=== PATIENT | female | born 1965 | race Caucasian/White ===

== ENCOUNTER 2018-09-29 00:26 | Inpatient (IN) | payer BC ==
--- NOTE | 2018-09-28 12:32 | HISTORY AND PHYSICAL ---
DATE OF ADMISSION: September 29, 2018 IDENTIFICATION/CHIEF COMPLAINT Kathy is a 52-year old woman with a chief complaint of right knee pain. HISTORY OF PRESENT ILLNESS Patient has a longstanding history of knee arthritis, progressively painful and debilitating and refractory to conservative care. Surgery is indicated to relieve symptoms after failure of nonoperative measures. PAST MEDICAL HISTORY 1. Sleep apnea. 2. Hypertension, controlled on medication. 3. Type 2 diabetes. 4. Migraine headaches. 5. Depression. PAST SURGICAL HISTORY 1. Appendectomy. 2. Hysterectomy. 3. Laminectomy x2. 4. Bilateral carpal tunnel. 5. Bilateral shoulder surgery. CURRENT MEDICATIONS 1. Aspirin 81 mg p.o. q. day. 2. Seroquel 250 mg p.o. q.h.s. 3. Wellbutrin 150 mg q. day. 4. Promethazine 25 mg p.o. p.r.n. 5. Flovent one puff to two puffs b.i.d. 6. Mobic 15 mg p.o. q.d. FAMILY HISTORY Noncontributory. SOCIAL HISTORY Negative for tobacco and alcohol use. REVIEW OF SYSTEMS Negative. PHYSICAL EXAMINATION GENERAL: Well-developed, well-nourished female who appears her stated age. HEENT: Normocephalic, atraumatic. NECK: Supple. LUNGS: Clear. HEART: Regular. ABDOMEN: Soft. ORTHOPEDIC EXAM The right knee has crepitus. She has an effusion present, stiffened of range. Gross stability is good. Radiographs demonstrate end-stage knee arthritis. ASSESSMENT Right knee degenerative joint disease, refractory to conservative care. PLAN Per patient request, we will proceed with total knee arthroplasty. The nature of the procedure, risks and benefits and anticipated rehab course were reviewed as well as nonoperative alternative. The risks of the procedure include, but are not limited to, , major medical or anesthetic complications, infection, neurovascular, need for blood transfusion, stiffening, scarring, fracture, tendon rupture, instability, implant loosening, migration or failure, persistent or recurrent pain, need for additional surgery and other unforeseen. She understands and wishes to proceed. A signed permit was placed in the chart. No guarantees are given or implied. PAYAM
[2018-09-28 13:56] LABS: INR 0.94
[~2018-09-29] VITALS: Ht 170.2 cm; Wt 97.5 kg
[2018-09-29] VITALS (11 sets, daily range): BP systolic 87–147; BP diastolic 49–77
[~2018-09-29 00:26] MED LIST: ASPI-1471 PO; BISO5TAB23 PO; BUPR-118 PO; ESC10 PO; ESOM40CA42 PO; ESTROTEST PO; FLU150 PO; LAMO200T45 PO; LISI-362 PO; LOVA40TA89 PO; MELO-205 PO; METF-450 PO; NEX40PT PO; PRE200PT PO; PRO100 PO; QUET150T3 PO; RANI150C17 PO; TIZA4CAP3 PO; TRAM100T8 PO; ZOPENEX INH
[2018-09-29] MEDS: NORMOSOL R SOLN(*) 1000 ML BAG 1,000 ML IV PRN ×2 (09:43→14:45)
[2018-09-29] MEDS ORDERED: LIDOCAINE/SOD BICARB 8.4% SYR ID ONE (10:00)
[2018-09-29] MEDS ORDERED: CELECOXIB 200 MG CAP PO ONE (10:00)
[2018-09-29] MEDS ORDERED: MIDAZOLAM 2 MG/2 ML VIAL IVP PRN (10:00)
[2018-09-29] MEDS ORDERED: PREGABALIN 150 MG CAPSULE PO ONE (10:00)
[2018-09-29] MEDS ORDERED: CLINDAMYCIN(*) 900 MG/NS 50 ML 50 ML IVPB ONE (10:00)
[2018-09-29] MEDS ORDERED: ROPIVACAINE/EPI/CLONIDINE/KET 50 ML SYRINGE INJ ONE (10:00)
[2018-09-29] MEDS ORDERED: TRANEXAMIC AC 1000 MG/10ML SDV 1,000 MG in DEXTROSE 5% 50 ML BAG 50 ML IV ONE ×4 (10:00)
[2018-09-29] MEDS ORDERED: FAMOTIDINE 20 MG TAB PO ONE (10:00)
[2018-09-29] MEDS ORDERED: ACETAMINOPHEN 500 MG TAB PO ONE (10:00)
[2018-09-29] MEDS ORDERED: SCOPOLAMINE 1.5 MG PATCH TD ONE (10:08)
[2018-09-29] MEDS ORDERED: DEXAMETHASONE SOD PHOS 10MG/ML ONE (10:49)
[2018-09-29] MEDS ORDERED: ONDANSETRON 4 MG/2 ML VIAL ONE (10:49)
[2018-09-29] MEDS ORDERED: PROPOFOL EMUL(*) 10MG/ML 20 ML 80 ML ONE (10:49)
[2018-09-29] MEDS ORDERED: MIDAZOLAM 2 MG/2 ML VIAL ONE (11:52)
[2018-09-29] MEDS ORDERED: ROPIVACAINE 0.5% 20 ML VIAL ONE (11:52)
[2018-09-29] MEDS ORDERED: VANCOMYCIN 1 GM VIAL ONE (12:07)
[2018-09-29] MEDS ORDERED: diphenhydrAMINE 25 MG CAP PO PRN (14:30)
[2018-09-29] MEDS ORDERED: ACETAMINOPHEN 325 MG TAB PO PRN (14:30)
[2018-09-29] MEDS ORDERED: ZOLPIDEM TARTRATE 5 MG TAB PO PRN (14:30)
[2018-09-29] MEDS ORDERED: NORMOSOL R SOLN(*) 1000 ML BAG 1,000 ML IV PRN (14:30)
[2018-09-29] MEDS ORDERED: BENZOCAINE/MENTHOL 1 EACH LOZG PO PRN (14:30)
[2018-09-29] MEDS ORDERED: BISACODYL 10 MG SUPP PR PRN (14:30)
[2018-09-29] MEDS ORDERED: diphenhydrAMINE 50 MG/ML VIAL IVP PRN (14:30)
[2018-09-29] MEDS ORDERED: MAGNESIUM HYDROXIDE* 30ML UDCP PO PRN (14:30)
[2018-09-29] MEDS ORDERED: FLUSH 10 ML SYR IVP PRN (14:30)
--- NOTE | 2018-09-29 15:03 | RADIOLOGY IMAGING REPORT ---
FACILITY: [facility] - [place] PATIENT NAME: Kathy Oliveira : 1965 MR: [id number] V: [id number] EXAM DATE: ORDERING PHYSICIAN: AISHA TAYLOR TECHNOLOGIST: Location: [facility] Patient: Kathy Oliveira : 1965 Visit/Account:[id number] Date of Sevice: 09/29/2018 KNEE LIMITED RIGHT Indication: POST R TKA Comparison: None. Findings: There are postoperative changes from right total knee arthroplasty. The femoral, patellar, and tibial components are in good alignment. Impression: Postoperative changes right total knee arthroplasty. Report Dictated By: Asaf Pearl at 09/29/2018 2:56 PM Report E-Signed By: Asaf Pearl at 09/29/2018 2:56 PM WSN:[id number]
[2018-09-29] MEDS: APAP/HYDROCODONE 325/7.5 TAB PO PRN ×2 (15:39→20:54)
--- NOTE | 2018-09-29 15:58 | NUR ---
Physical Therapy Impression PT eval complete. Pt's main complaint is L) shoulder pain, she reports that she has pain and poor function of B) shoulders. Pt completed bed mobility with Alexa. CGA to stand at EOB, pt with effects of spinal still intact and therefore side step not completed. CPM fit and running 0-30 degrees at end of session, pt with good tolerance to supine LE therex. Pt anticipates d/c with OP PT services. Physical Therapy Goals 1: bed mobility with Alexa 2: transfers with SBA and least restrictive Ad 3: ambulation x150' wtih SBA and least restrictive AD 4: Asc/desc 4 stairs with railing and CGA. 5: Pt to be I) with CPM Patient's Goals
[2018-09-29] MEDS ORDERED: LEVALBUTEROL 15 GM INH INH PRN (16:10)
--- NOTE | 2018-09-29 16:10 | Hospitalist Consultation ---
History of Present Illness Requesting Physician Dr. Snell Reason for Consult Medical Management Chief Complaint s/p right knee replacement History of Present Illness She was admitted s/p right knee replacement. It is reported the surgery went well and without complication. History Problems: (1) Bigeminal rhythm Status: Chronic (2) Asthma Status: Chronic (3) GERD (gastroesophageal reflux disease) Status: Chronic (4) Hypertension Status: Chronic (5) Hyperlipidemia Status: Chronic (6) Type 2 diabetes mellitus Status: Chronic Home Meds Reported Medications [Zopenex] No Conflict Check, 2 PUFF INH PRN 09/28/18 Ranitidine Hcl (RANITIDINE HCL) 150 Mg Capsule, 150 MG PO QHS, CAPSULE 09/28/18 Metformin Hcl (METFORMIN HCL) 500 Mg Tablet, 1 TAB PO QHS, TAB 09/28/18 Lisinopril (LISINOPRIL) 10 Mg Tablet, 10 MG PO QHS, TAB 09/28/18 [Estrotest] No Conflict Check, 0.25 MG PO DAILY 09/28/18 Tramadol Hcl (TRAMADOL HCL) 100 Mg Tab.er.24h, 100 MG PO QID PRN for PAIN, TAB 09/23/18 Aspirin (ASPIR 81) 81 Mg Tablet.dr, 81 MG PO QDAY, TAB 09/23/18 Bisoprolol Fumarate (BISOPROLOL FUMARATE) 5 Mg Tablet, 5 MG PO QDAY, #10 TAB 09/23/18 Meloxicam (MELOXICAM) 7.5 Mg Tablet, 7.5 MG PO QDAY 09/23/18 Lovastatin (LOVASTATIN) 40 Mg Tablet, 40 MG PO QDAY 09/23/18 Tizanidine Hcl (TIZANIDINE HCL) 4 Mg Capsule, 8.5 MG PO QHS, CAPSULE 09/23/18 Esomeprazole Magnesium (NEXIUM) 40 Mg Capsule.dr, 1 CAP PO QHS, CAP 09/23/18 Pregabalin (LYRICA) 200 Mg Cap, 200 MG PO BID, CAP 09/23/18 Progesterone (Prometrium) 100 Mg Cap, 100 MG PO QDAY 12/21/11 Lamotrigine (Lamotrigine) 200 Mg Tablet, 200 MG PO DAILY 12/21/11 Bupropion Hcl (Budeprion Xl) 150 Mg Tab.sr.24h, 150 MG PO DAILY 12/21/11 Escitalopram Oxalate (Lexapro) 10 Mg Tab, 20 MG PO QHS 12/21/11 Quetiapine Fumarate (Seroquel Xr) 150 Mg Tab.sr.24h, 400 MG PO HS 12/21/11 Discontinued Reported Medications Fluconazole (Diflucan) 150 Mg Tab, 150 MG PO QDAY 12/21/11 Allergies: Coded Allergies: Penicillins (Verified Allergy, Severe, THROAT SWELLING, 09/23/18) cephalexin (Verified Allergy, Severe, anaphylaxis, 09/22/18) sumatriptan (Verified Allergy, Intermediate, VOMITING,DIARRHEA AND SEVERE HEADACHES, 09/24/18) Patient History: FH: COPD (chronic obstructive pulmonary disease) MOTHER FH: Crohn's disease MOTHER FH: prostate cancer FATHER Hx Smoking: No Smoking Status: Former Smoker When Quit Tobacco?: 4 years ago Caffeine Intake: Soda Caffeine/Cups Per Day: 2 CANS DAILY Hx Alcohol Use: No Hx Substance Use Disorder: No History of IV Drug Use: No Review of Systems All Systems Reviewed/Normal: Yes, Except as Noted Musculoskeletal: Pain (she has c/o of bilateral chronic shoulder pain) Exam Vital Signs Vital Signs Date Time Temp Pulse Resp B/P (MAP) Pulse Ox O2 Delivery O2 Flow Rate FiO2 09/29/18 15:19 98.1 62 12 114/57 (76) 92 Nasal Cannula 4.0 General Appearance: Alert, Awake, No Acute Distress, Afebrile Neuro: No Gross deficits Cardiovascular: Regular Rate and Rhythm Respiratory: No Respiratory Distress, Clear to Auscultation GI: Abd Soft and Non-Tender Psych: Alert & Oriented X3, Appropriate Mood & Affect Assessment and Plan Problems: (1) Status post right knee replacement Status: Acute Assessment & Plan: Followed by Dr. Snell. She will be placed on Aspirin for D VT prophylaxis. (2) Bigeminal rhythm Status: Chronic Assessment & Plan: She is on chronic treatment with Bisoprolol. Continue. (3) Hypertension Status: Chronic Assessment & Plan: She is on chronic treatment with Lisinopril. This has been restarted with hold parameters. (4) Type 2 diabetes mellitus Status: Chronic Assessment & Plan: She is on chronic treatment with Metformin. She will be started on SS insulin #2 and AC/HS blood sugars. (5) Asthma Status: Chronic Assessment & Plan: She is on chronic treatment with Xopenex inhaler. (6) GERD (gastroesophageal reflux disease) Status: Chronic Assessment & Plan: She is on chronic treatment with Nexium. She will be placed on Protonix during admission. (7) Hyperlipidemia Status: Chronic Assessment & Plan: She is on chronic treatment with Lovastatin. Venous Thromboembolism Antithrombotics Is Pt On Any Antithrombotics?: No Problem Qualifiers (1) Hypertension: Hypertension type: essential hypertension Qualified Codes: I10 - Essential (primary) hypertension ADRIEL CASEP Sep 29, 2018 16:10
[2018-09-29] MEDS: INSULIN HUM LISPRO 100 UN/ML 3 ML VIAL SUBQ PRN ×2 (17:24→20:58)
[2018-09-29] MEDS: DIAZEPAM 5 MG TAB PO PRN (17:24)
[2018-09-29] MEDS: CELECOXIB 200 MG CAP PO SCH (17:24)
[2018-09-29] MEDS: CLINDAMYCIN(*) 900 MG/NS 50 ML 50 ML IVPB SCH (20:31)
[2018-09-29] MEDS: QUEtiapine FUM 100 MG TAB PO SCH (20:54)
[2018-09-29] MEDS: RANITIDINE HCL 150 MG TAB PO SCH (20:55)
[2018-09-29] MEDS: ESCITALOPRAM OXALATE 10 MG TAB PO SCH (20:55)
[2018-09-29] MEDS: PREGABALIN PO SCH (20:55)
[2018-09-29] MEDS: PANTOPRAZOLE SOD 40 MG TABEC PO SCH (20:55)
[2018-09-29] MEDS ORDERED: PREGABALIN 200 MG PO SCH (21:00)
[2018-09-29] MEDS: LISINOPRIL 10 MG TAB PO SCH (21:00)
[2018-09-29] MEDS ORDERED: NS(*) 0.9% 250 ML BAG 250 ML ONE (21:03)
--- NOTE | 2018-09-29 22:08 | OPERATIVE REPORT 1 ---
EVENT DATE: September 29, 2018 SURGEON: Jose Miguel Snell MD ANESTHESIOLOGIST: Mal Somers MD ANESTHESIA: General plus spinal. PRODUCTION ENGINE REPAIRER: JUANITA Kiran PREOPERATIVE DIAGNOSIS Right knee degenerative joint disease. POSTOPERATIVE DIAGNOSIS Right knee degenerative joint disease. PROCEDURE PERFORMED Right total knee arthroplasty. ESTIMATED BLOOD LOSS Minimal. DRAINS None. SPECIMENS None. COMPLICATIONS None apparent. TOURNIQUET TIME 45 minutes IMPLANTS USED [employer] Triathlon knee system with a 3 right PS femur, 3 standard tibial baseplate, 36 mm universal, symmetric, all-polyethylene patellar button, and a 16 mm PS tibial tray liner. INDICATIONS Kathy has end-stage patellofemoral arthritis and subluxation associated with some disease in the tibiofemoral compartment. Surgery is indicated to relieve pain and improve function after failure of nonoperative measures. DESCRIPTION OF PROCEDURE Patient is taken to the operating room. She is placed supine on the operating table. General anesthesia is induced. Standard antibiotics are administered IV. Right lower extremity is prepped and draped in the usual sterile fashion for orthopedic surgery. Limb is exsanguinated with an Esmarch bandage. Tourniquet is inflated to 250 mmHg. A midline longitudinal incision is made and carried down through the skin and subcutaneous tissue to the extensor mechanism. Full-thickness flap is developed far enough medially to allow medial parapatellar arthrotomy to be performed. Patella is everted. Knee is brought into a flexed position. Fat pad, anterior horns of the menisci, and the cruciate ligaments are debrided. Subperiosteal capsule release is performed 1 cm circumferentially around the upper plateau. A step drill is used to enter the distal femur. A 10-inch long alignment guide is used to engage the isthmus. Cut is set for 6 degrees of valgus relative to the anatomic axis. A 10 mm resection block is applied and pinned. Cut is made with an oscillating saw. AP sizing guide is applied to the distal femur and positioned for 3 degrees of external rotation relative to the posterior condyles. The four-in-one cutting block is applied after sizing for size 3. Anterior, posterior, posterior chamfer, and anterior chamfer cuts are made respectively. PS block is applied and centered. Medial and lateral bone is removed through the box. Trial femur has nice fit. Attention is turned to tibial preparation. The extramedullary guide is applied and positioned for varus, valgus, posterior slope, and rotation. This is set to take 9 mm from the relatively intact lateral tibial plateau. It is dropped down another millimeter or two to assure an adequate cut. Block is pinned. Extramedullary alignment check is made. Cuts are made with an oscillating saw. The gaps are balanced and symmetric with no additional releases required. A size 3 tibial baseplate covers the bony surface on the tibia ideally without overhang. This is inserted along with the trial liner and trial femur. Knee is brought to full extension. Patella is taken from a starting thickness of 21 to a residual of 14 mm with a patellar clamp and oscillating saw. The 36 provides optimal bony coverage without soft tissue overhang. Lug holes are drilled. Patella tracks nicely with the no-touch technique. Final tibial preparation consists of assuring appropriate rotational and translational positioning of the component. Boss is reamed. Fin is punched. Surface is lavaged. A mix of methacrylate is made, and components are cemented in a single stage. Once the cement is fully polymerized, tourniquet is deflated. Meticulous hemostasis is assured. Loose debris is cleared from the wound. A 16 PS tibial tray liner fills up the gap ideally, allowing the knee to drop to full extension without hyperextension, providing optimal soft tissue balance and stability. Tray is lavaged and dried, and the actual liner is locked into the baseplate. Once reduced, the arthrotomy is closed with in flexion with #2 Ethibond, subcutaneous tissue with 3-0 Vicryl, and skin with surgical che. Xeroform is applied for a dry, sterile dressing and compression wrap. Patient is awakened from anesthesia and taken to the recovery room in stable condition having tolerated the procedure well. PLAN Plan is for standard TKA rehab protocol. [facility]
[2018-09-30] MEDS: APAP/HYDROCODONE 325/7.5 TAB PO PRN ×4 (01:33→17:01)
[2018-09-30] MEDS: DIAZEPAM 5 MG TAB PO PRN ×2 (01:33→08:51)
[2018-09-30] MEDS: CLINDAMYCIN(*) 900 MG/NS 50 ML 50 ML IVPB SCH ×2 (04:22→13:05)
[2018-09-30 07:50] VITALS: BP 116/58
[2018-09-30 08:46] VITALS: Ht 170.2 cm; Wt 97.5 kg
[2018-09-30] MEDS: CELECOXIB 200 MG CAP PO SCH ×2 (08:49→17:23)
[2018-09-30] MEDS: ASPIRIN 325 MG TAB PO SCH (08:49)
[2018-09-30] MEDS: buPROPion XL 150 MG TABCR PO SCH (08:50)
[2018-09-30] MEDS: PREGABALIN PO SCH ×2 (08:51→20:38)
[2018-09-30] MEDS: LOVASTATIN 20 MG TAB PO SCH (08:51)
[2018-09-30] MEDS: lamoTRIgine 100 MG TAB PO SCH (08:53)
[2018-09-30] MEDS ORDERED: BISOPROLOL FUMARATE 5 MG TAB PO SCH (09:00)
[2018-09-30] MEDS: oxyCODONE HCL 5 MG CAP PO PRN ×3 (10:44→23:00)
[2018-09-30] MEDS: METOPROLOL SUCC XL 50 MG TABCR 50 MG TAB.ER.24H PO SCH (10:45)
--- NOTE | 2018-09-30 11:04 | Hospitalist Progress Note ---
Subjective Progress Notes Subjective She was admitted after right knee replacement. She had no complaints this morning. She had no acute events overnight. Patient Complains of: Cardiovascular: No: Chest Pain Respiratory: No: Shortness of Breath Physical Exam Vital Signs Date Time Temp Pulse Resp B/P (MAP) Pulse Ox O2 Delivery O2 Flow Rate FiO2 09/30/18 09:08 83 09/30/18 07:50 98.4 64 18 116/58 (77) Nasal Cannula 2.0 Intake and Output 09/30/18 07:00 Intake Total 2500 ml Balance 2500 ml Intake Oral 400 ml IV Total 2100 ml # Voids 3 General Appearance: Alert, Awake, No Acute Distress, Afebrile Neuro: No Gross deficits Cardiovascular: Regular Rate and Rhythm Respiratory: No Respiratory Distress, Clear to Auscultation Psych: Alert & Oriented X3, Appropriate Mood & Affect Assessment and Plan Problems: (1) Status post right knee replacement Status: Acute Assessment & Plan: Followed by Dr. Snell. She will be placed on Aspirin for DVT prophylaxis. (2) Bigeminal rhythm Status: Chronic Assessment & Plan: She is on chronic treatment with Bisoprolol. The hospital does not carry Bisoprolol. She will be placed on equivocal dose of Metoprolol during admission. (3) Hypertension Status: Chronic Assessment & Plan: She is on chronic treatment with Lisinopril. This has been restarted with hold parameters. (4) Type 2 diabetes mellitus Status: Chronic Assessment & Plan: She is on chronic treatment with Metformin. She will be started on SS insulin #2 and AC/HS blood sugars. (5) Asthma Status: Chronic Assessment & Plan: She is on chronic treatment with Xopenex inhaler. (6) GERD (gastroesophageal reflux disease) Status: Chronic Assessment & Plan: She is on chronic treatment with Nexium. She will be placed on Protonix during admission. (7) Hyperlipidemia Status: Chronic Assessment & Plan: She is on chronic treatment with Lovastatin. Exam Sepsis Risk: No Definite Risk Problem Qualifiers (1) Hypertension: Hypertension type: essential hypertension Qualified Codes: I10 - Essential (primary) hypertension ADRIEL CASE REHABILITATION ENGINEER Sep 30, 2018 11:04
[2018-09-30 11:25] VITALS: BP 122/62
[2018-09-30] MEDS: INSULIN HUM LISPRO 100 UN/ML 3 ML VIAL SUBQ PRN ×3 (11:52→20:40)
--- NOTE | 2018-09-30 12:03 | NUR ---
Physical Therapy Impression Pt is doing well with transfers and tolerated gait x 100' with FWW. Pt on room air with activity, though SpO2 was 84% upon return to bed. Replaced supplementary O2 at 1.0 L with quick increase to low/mid 90% saturation. Notified nursing of this. Pt is hoping to D/C home tomorrow with OP PT. Will need to complete a platform step to simulate entry into her home prior to D/C. Physical Therapy Goals 1: bed mobility with Alexa 2: transfers with SBA and least restrictive Ad 3: ambulation x150' wtih SBA and least restrictive AD 4: Asc/desc 4 stairs with railing and CGA. 5: Pt to be I) with CPM Patient's Goals
[2018-09-30] MEDS: METAXALONE 800 MG TAB PO PRN ×2 (13:05→19:22)
[2018-09-30 14:44] VITALS: BP 112/43
--- NOTE | 2018-09-30 16:04 | Medical Nutrition Therapy ---
Nutrition Anthropometrics Height (Inches): 67.00 Height (Calculated Centimeters: 170.810145 Weight (Pounds): 215 Weight (Calculated Kilograms): 97.522 Jules Nutrition Score: Adequate Jules Nutrition Risk Score: 18 Dietary Referral Nutrition Risk Factors: Special Diet Nutrition Risk Comment: Vegetarian Physical Findings Physical Appearance: Obese BMI 30-39 Skin Appearance Skin Appearance: Edema Edema Location Modifier: Right Edema Location: Foot Type of Edema: Degree of Edema: Gastrointestinal Symptoms GI Symtoms: Tube Present: Bowel Sounds: Recent Bowel Pattern: Stool Characteristics: Nutritional Diagnosis Nutritional Risk Acuity 2: Blood Glucose > 300mg/dl Nutritional Risk Acuity 3: GERD Nutritional Risk Acuity 4: Modified Diet Past Medical History: DMT2, Asthma, GERD, Hypertesion, Hyperlipidemia. Nutritional Acuity: 2-Moderate Nutrition Diagnosis: Inconsistent Carb. Intake Nutrition Etiology: Physiological Causes Nutrition Problem/Etiology/Sym: Inconsistent cardb intake related to physiological causes as evidenced by recent right knee replacement and blood sugar over 300mg/dL. Energy Requirement: 2123 (AF 1.2, TEF 1.1) Adjusted Energy Requirement Re: 1623 (-500kcal) Protein Requirement: 78 (0.8g AA/kg BW) Fluid Requirement: 2123 (1 kcal = 1 mL) Diet Type: Diabetic Nutrition Intervention: Cont diet as ordered, Encourage intake, Check glucose Diet Comment To RSA: Prefers Vegetarian Diet. Diabetic diet. Nutrition Monitoring & Eval Nutrition Goals: Eat 50-100% Meal, Drink > 2 liters/day RD Patient Assessment Time: [address] Assessment Type: RD Assessment Patient Nutrition Acuity: 2-Moderate Follow Up Date: Oct 04, 2018 Nutritional Comment: Pt admitted to hospital today for right knee replacement. Pt has a hx of DMT2, GERD, Asthma, Hypertension, Hyperlipidemia. Pt on a diabetic diet and prefers vegetarian. Pt is on metformin. Blood Glucose range from 108-315. Pt admitted in 2011 weighed 107kg, current (2019) weight 97kg, wt loss of 10kg in 7 years. -WENDY RD read and approved. -ROB LEE Sep 30, 2018 16:04
[2018-09-30 20:17] VITALS: BP 128/62
[2018-09-30] MEDS: ESCITALOPRAM OXALATE 10 MG TAB PO SCH (20:38)
[2018-09-30] MEDS: metFORMIN HCL 500 MG TAB PO SCH (20:38)
[2018-09-30] MEDS: PANTOPRAZOLE SOD 40 MG TABEC PO SCH (20:39)
[2018-09-30] MEDS: LISINOPRIL 10 MG TAB PO SCH (20:39)
[2018-09-30] MEDS: RANITIDINE HCL 150 MG TAB PO SCH (20:39)
[2018-09-30] MEDS: QUEtiapine FUM 100 MG TAB PO SCH (20:39)
[2018-09-30] MEDS: PROMETHAZINE 25 MG/ML 1 ML AMP IVP PRN (23:15)
[2018-09-30 23:20] VITALS: BP 136/72
[2018-10-01] MEDS: DIAZEPAM 5 MG TAB PO PRN (00:28)
[2018-10-01] MEDS: APAP/HYDROCODONE 325/7.5 TAB PO PRN ×4 (03:45→21:16)
[2018-10-01 03:51] VITALS: BP 128/60
[2018-10-01] MEDS: CELECOXIB 200 MG CAP PO SCH ×2 (08:00→16:11)
[2018-10-01 08:28] VITALS: BP 113/74
[2018-10-01] MEDS ORDERED: DIA5 PO (08:43)
[2018-10-01] MEDS ORDERED: HYDR-654 PO (08:46)
[2018-10-01] MEDS: PREGABALIN PO SCH ×2 (09:00→21:16)
[2018-10-01] MEDS: LOVASTATIN 20 MG TAB PO SCH (09:00)
[2018-10-01] MEDS: METOPROLOL SUCC XL 50 MG TABCR 50 MG TAB.ER.24H PO SCH (09:00)
--- NOTE | 2018-10-01 09:00 | NUR ---
Physical Therapy Impression Pt progressing and will address stairs in rehab dept tomorrow am prior to anticipated d/c home with out pt PT arranged. Physical Therapy Goals 1: bed mobility with Alexa 2: transfers with SBA and least restrictive Ad 3: ambulation x150' wtih SBA and least restrictive AD 4: Asc/desc 4 stairs with railing and CGA. 5: Pt to be I) with CPM Patient's Goals Addendum: 10/03/18 at 0135 by MESHA GRAY PT Late Entry for PT visit completed on 09/30/18 at 16:15.
--- NOTE | 2018-10-01 10:00 | NUR ---
Did not cover using sliding scale d/t pt c/o nausea, refusing breakfast. Addendum: 10/01/18 at 2053 by KIKE SHARMA RN Amended: Links added.
[2018-10-01] MEDS ORDERED: ASPI-757 PO (10:37)
--- NOTE | 2018-10-01 10:58 | Hospitalist Progress Note ---
Subjective Progress Notes Subjective She was admitted s/p knee replacement. She appears to have increased sedation this morning. She is slurring her words, unable to stay awake. Patient Complains of: Cardiovascular: No: Chest Pain Respiratory: No: Shortness of Breath Physical Exam Vital Signs Date Time Temp Pulse Resp B/P (MAP) Pulse Ox O2 Delivery O2 Flow Rate FiO2 10/01/18 09:36 Nasal Cannula 2.5 10/01/18 09:33 63 18 95 10/01/18 08:28 98.8 113/74 (87) Intake and Output 10/01/18 07:00 Intake Total 1339 ml Balance 1339 ml Intake Oral 1284 ml IV Total 55 ml # Voids 5 General Appearance: Afebrile Neuro: Other (unable to stay awake during conversation, slurring words) Cardiovascular: Regular Rate and Rhythm Respiratory: No Respiratory Distress, Clear to Auscultation Extremities: Warm, Perfused Assessment and Plan Problems: (1) Status post right knee replacement Status: Acute Assessment & Plan: Followed by Dr. Snell. She will be placed on Aspirin for DVT prophylaxis. (2) Medication adverse effect Status: Acute Assessment & Plan: She appeared to have increased sedation this morning. Will recommend stopping the Skelaxin, as she also is receiving Valium for muscle relaxant. Will continue to monitor. She has now been able to wake up and ambulate to the bathroom. (3) Bigeminal rhythm Status: Chronic Assessment & Plan: She is on chronic treatment with Bisoprolol. The hospital does not carry Bisoprolol. She will be placed on equivocal dose of Metoprolol during admission. (4) Hypertension Status: Chronic Assessment & Plan: She is on chronic treatment with Lisinopril. This has been restarted with hold parameters. (5) Type 2 diabetes mellitus Status: Chronic Assessment & Plan: She is on chronic treatment with Metformin. She will be started on SS insulin #2 and AC/HS blood sugars. (6) Asthma Status: Chronic Assessment & Plan: She is on chronic treatment with Xopenex inhaler. (7) GERD (gastroesophageal reflux disease) Status: Chronic Assessment & Plan: She is on chronic treatment with Nexium. She will be placed on Protonix during admission. (8) Hyperlipidemia Status: Chronic Assessment & Plan: She is on chronic treatment with Lovastatin. Exam Sepsis Risk: No Definite Risk Problem Qualifiers (1) Hypertension: Hypertension type: essential hypertension Qualified Codes: I10 - Essential (primary) hypertension ADRIEL CASE DIRECTOR EXTERNAL COMMUNICATIONS Oct 01, 2018 10:57
--- NOTE | 2018-10-01 11:40 | NUR ---
Physical Therapy Impression Pt very lethargic this morning, with difficulty communicating. RN aware and reports that pt is having this reaction to combination of pain medication. Pt nauseous when PT attempted session later in the AM. Alexa to rise to stand, ambulation x10' with RW. Pt reported nausea and requested to sit. PT assisted pt to chair and then back into bed with min-modA. All vital signs WNL, RN notified. Physical Therapy Goals 1: bed mobility with Alexa 2: transfers with SBA and least restrictive Ad 3: ambulation x150' wtih SBA and least restrictive AD 4: Asc/desc 4 stairs with railing and CGA. 5: Pt to be I) with CPM Patient's Goals
[2018-10-01] MEDS: PROMETHAZINE 25 MG/ML 1 ML AMP IVP PRN (12:05)
[2018-10-01 12:15] VITALS: BP 115/54
--- NOTE | 2018-10-01 13:11 | NUR ---
Patient sedated this AM. Nauseated upon waking. Refused scheduled meds at this point, pt stated it is acceptable to not take home meds at this time. Checked morning WBG. Provided Sprite Zero, saltine crackers in AM, patient requested phenergan after working with PT, refused lunch. Patient resting quietly, will continue to monitor.
--- NOTE | 2018-10-01 15:04 | NUR ---
Physical Therapy Impression Pt up in bathroom, requires encouragement to participate in therapy session secondary to continued nausea and pain. Pt with overall improved tolerance. SBA for transfers and ambulation x20' with use of RW. PT instructed pt in stair negotiation on 2" stairs as the pt reports short stairs at home. Pt asc/desc 6 stairs with close CGA and fair tolerance. Plan for d/c home in AM if functionally appropriate. Pt with continued nausea throughout session. Physical Therapy Goals 1: bed mobility with Alexa 2: transfers with SBA and least restrictive Ad 3: ambulation x150' wtih SBA and least restrictive AD 4: Asc/desc 4 stairs with railing and CGA. 5: Pt to be I) with CPM Patient's Goals
[2018-10-01] MEDS: ASPIRIN 325 MG TAB PO SCH (16:11)
[2018-10-01] MEDS: lamoTRIgine 100 MG TAB PO SCH (16:12)
[2018-10-01] MEDS: buPROPion XL 150 MG TABCR PO SCH (16:12)
[2018-10-01 16:17] VITALS: BP 134/67
[2018-10-01 20:30] VITALS: BP 137/71
--- NOTE | 2018-10-01 20:52 | NUR ---
Did not cover with sliding scale d/t patient has refused food today. Explained to patient that RN will check at bedtime. Addendum: 10/01/18 at 2052 by KIKE SHARMA RN Amended: Links added.
[2018-10-01] MEDS: PANTOPRAZOLE SOD 40 MG TABEC PO SCH (21:16)
[2018-10-01] MEDS: LISINOPRIL 10 MG TAB PO SCH (21:16)
[2018-10-01] MEDS: metFORMIN HCL 500 MG TAB PO SCH (21:16)
[2018-10-01] MEDS: ESCITALOPRAM OXALATE 10 MG TAB PO SCH (21:17)
[2018-10-01] MEDS: RANITIDINE HCL 150 MG TAB PO SCH (21:17)
[2018-10-01] MEDS: INSULIN HUM LISPRO 100 UN/ML 3 ML VIAL SUBQ PRN (21:18)
[2018-10-01] MEDS: QUEtiapine FUM 100 MG TAB PO SCH (21:43)
[2018-10-02 02:44] VITALS: BP 118/57
[2018-10-02 07:20] VITALS: BP 126/69
[2018-10-02] MEDS: CELECOXIB 200 MG CAP PO SCH (07:46)
[2018-10-02] MEDS: APAP/HYDROCODONE 325/7.5 TAB PO PRN ×2 (07:46→12:17)
[2018-10-02] MEDS: INSULIN HUM LISPRO 100 UN/ML 3 ML VIAL SUBQ PRN (08:08)
--- NOTE | 2018-10-02 08:38 | NUR ---
Physical Therapy Impression Pt met PT goals yesterday afternoon with completion of stairs after she became more alert. Pt now notes that she feels confident with discharge home today. Reviewed CPM trng with instructions and return demo on how to advance flexion as tolerated. Physical Therapy Goals 1: bed mobility with Alexa 2: transfers with SBA and least restrictive Ad 3: ambulation x150' wtih SBA and least restrictive AD 4: Asc/desc 4 stairs with railing and CGA. 5: Pt to be I) with CPM Patient's Goals
[2018-10-02] MEDS: LOVASTATIN 20 MG TAB PO SCH (08:54)
[2018-10-02] MEDS: ASPIRIN 325 MG TAB PO SCH (08:54)
[2018-10-02] MEDS: PREGABALIN PO SCH (08:54)
[2018-10-02] MEDS: METOPROLOL SUCC XL 50 MG TABCR 50 MG TAB.ER.24H PO SCH (08:54)
[2018-10-02] MEDS: buPROPion XL 150 MG TABCR PO SCH (08:55)
[2018-10-02] MEDS: lamoTRIgine 100 MG TAB PO SCH (09:02)
[2018-10-02] MEDS: oxyCODONE HCL 5 MG CAP PO PRN (11:16)
--- NOTE | 2018-10-02 11:28 | Hospitalist Progress Note ---
Subjective Progress Notes Subjective She was admitted after knee replacement. She has decreased her pain medications and now has been awake and able to ambulate. She reports feeling better this morning. Patient Complains of: Cardiovascular: No: Chest Pain Respiratory: No: Shortness of Breath Physical Exam Vital Signs Date Time Temp Pulse Resp B/P (MAP) Pulse Ox O2 Delivery O2 Flow Rate FiO2 10/02/18 07:20 98.0 90 14 126/69 (88) 91 Nasal Cannula 2.0 Intake and Output 10/02/18 06:59 Intake Total 240 ml Balance 240 ml Intake Oral 240 ml # Voids 2 General Appearance: Alert, Awake, No Acute Distress, Afebrile Neuro: No Gross deficits Cardiovascular: Regular Rate and Rhythm Respiratory: No Respiratory Distress, Clear to Auscultation GI: Soft and Non-Tender Psych: Alert & Oriented X3, Appropriate Mood & Affect Assessment and Plan Problems: (1) Status post right knee replacement Status: Acute Assessment & Plan: Followed by Dr. Snell. She will be placed on Aspirin for DVT prophylaxis. (2) Medication adverse effect Status: Acute Assessment & Plan: Improved. She appeared to have increased sedation 10/01. Recommended stopping the Skelaxin, as she also is receiving Valium for muscle relaxant. (3) Bigeminal rhythm Status: Chronic Assessment & Plan: She is on chronic treatment with Bisoprolol. The hospital does not carry Bisoprolol. She will be placed on equivocal dose of Metoprolol during admission. (4) Hypertension Status: Chronic Assessment & Plan: She is on chronic treatment with Lisinopril. This has been restarted with hold parameters. (5) Type 2 diabetes mellitus Status: Chronic Assessment & Plan: She is on chronic treatment with Metformin. She will be started on SS insulin #2 and AC/HS blood sugars. (6) Asthma Status: Chronic Assessment & Plan: She is on chronic treatment with Xopenex inhaler. (7) GERD (gastroesophageal reflux disease) Status: Chronic Assessment & Plan: She is on chronic treatment with Nexium. She will be placed on Protonix during admission. (8) Hyperlipidemia Status: Chronic Assessment & Plan: She is on chronic treatment with Lovastatin. Exam Sepsis Risk: No Definite Risk Problem Qualifiers (1) Hypertension: Hypertension type: essential hypertension Qualified Codes: I10 - Essential (primary) hypertension [employer] Oct 02, 2018 11:28
== END 2018-10-02 12:40 | disposition home or self-care (01) | DRG 470 ==
LOC: OR 00:26 → MED 15:15
PROVIDERS: ADMIT Orthopaedic Surgery; ATTEND Orthopaedic Surgery
PROC: 0SRC0J9 Replacement of Right Knee Joint with Synthetic Substitute, Cemented, Open Approach (ICD-10-PCS; principal; 2018-09-29 12:15)
DX: M17.11 Unilateral primary osteoarthritis, right knee (principal); I10 Essential (primary) hypertension; E11.9 Type 2 diabetes mellitus without complications; K21.9 Gastro-esophageal reflux disease without esophagitis; R00.8 Other abnormalities of heart beat; F32.9 Major depressive disorder, single episode, unspecified; G47.30 Sleep apnea, unspecified; J45.909 Unspecified asthma, uncomplicated; E78.5 Hyperlipidemia, unspecified; T42.8X5A Adverse effect of antiparkinsonism drugs and other central muscle-tone depressants, initial encounter; Y92.230 Patient room in hospital as the place of occurrence of the external cause; Z88.0 Allergy status to penicillin; Z90.710 Acquired absence of both cervix and uterus; Z88.8 Allergy status to other drugs, medicaments and biological substances; Z87.891 Personal history of nicotine dependence; Z79.84 Long term (current) use of oral hypoglycemic drugs
CPT/HCPCS: 36415; 36416; 76942; 82948; 85610; 86850; 86900; 86901; 97161; C1713; C1776; J1100; J2250; J2405; J2550; J2704; J2795; J3370; J3490; J7060

== ENCOUNTER → 2018-10-26 | Outpatient (CLI) | payer BC ==
[2018-09-30 08:46] VITALS: BMI 33.7
[~2018-10-26] MED LIST changes: +ASPI-757 PO; +DIA5 PO; +HYDR-654 PO
--- NOTE | 2018-10-26 14:04 | RADIOLOGY IMAGING REPORT ---
FACILITY: [facility] PATIENT NAME: Kathy Oliveira : 1965 MR: [id number] V: [id number] EXAM DATE: ORDERING PHYSICIAN: AISHA TAYLOR TECHNOLOGIST: Location: [facility] [place] Patient: Kathy Oliveira : 1965 Visit/Account:[id number] Date of Sevice: 10/26/2018 EXAMINATION: US VENOUS LOWER EXT RT COMPARISON: None Available HISTORY: Right leg pain and swelling. Recent knee arthroplasty. FINDINGS: Standard right lower extremity Doppler ultrasound with color flow and spectral analysis is performed. The common femoral, femoral, and popliteal veins are widely patent and compress appropriately. The v isualized calf veins and the proximal greater saphenous vein are patent. No popliteal fluid collection. IMPRESSION: No right lower extremity deep venous thrombosis. Report Dictated By: Yves Heredia MD at 10/26/2018 1:58 PM Report E-Signed By: Yves Heredia MD at 10/26/2018 2:00 PM WSN:[email or web address]
== END ==
LOC: US 12:11
PROVIDERS: ATTEND Orthopaedic Surgery
DX: M79.604 Pain in right leg (principal); R22.41 Localized swelling, mass and lump, right lower limb